=== PATIENT | female | born 1940 | race Caucasian/White ===

== ENCOUNTER 2018-06-27 20:46 | Emergency (ER) | payer MEDICARE, BC ==
[~2018-06-27] VITALS: Ht 157.5 cm; Wt 71.2 kg
[~2018-06-27 20:46] MED LIST: ASPI-482 PO; ESTR1TAB15 PO; METO25TA4 PO; SIMV40TA3 PO
[2018-06-27 21:17] LABS: BASO % 0 % (0-3); EOS # 0.2 x10^3/uL (0.0-0.7); EOS % 2 % (0-3); HEMATOCRIT 39.6 % (36.0-47.0); HEMOGLOBIN 13.3 g/dL (12.0-15.5); LYMPH # 3.5 x10^3/uL (1.0-4.8); LYMPH % 32 % (24-48); MEAN CORPUSCULAR HEMOGLOBIN 30 pg (25-35); MEAN CORPUSCULAR HGB CONC 34 g/dL (31-37); MEAN CORPUSCULAR VOLUME 90 fL (79-100); MONO # 0.8 x10^3/uL (0.0-1.1); MONO % 8 % (0-9); NEUT # 6.5 x10^3uL (1.8-7.7); NEUT % 59 % (31-73); PLATELET COUNT 259 x10^3/uL (140-400); RED BLOOD COUNT 4.39 x10^6/uL (3.50-5.40); RED CELL DISTRIBUTION WIDTH 13.2 % (11.5-14.5); WHITE BLOOD COUNT 11.1 x10^3/uL (4.0-11.0)
--- NOTE | 2018-06-27 21:20 | PHYS DOC ---
Past Medical History Past Medical History: High Cholesterol Past Surgical History: Hysterectomy Additional Past Surgical Histo: CATARACT Alcohol Use: None Drug Use: None Adult General Chief Complaint Chief Complaint: CHEST WALL PAIN HPI HPI 77-year-old female presents to ER via POV for complaints of upper back pain which radiates down her left arm. Patient states pain has been ongoing for the past 5 days. Patient states on Thursday or Thursday last week she shoveled snow and ice off of her patio. Patient reports she has taken ibuprofen 2 today 600 mg each dose with improved pain but reports with pain still ongoing she decided to come to the ER to be evaluated. At this time patient denies any pain. Patient denies having any shortness of air, abdominal pain, nausea or vomiting, swelling, or chest pain. Patient states pain has only been in her upper back between her shoulders. Patient denies any recent falls or injury. Review of Systems Review of Systems Constitutional: Denies fever or chills [] Eyes: Denies change in visual acuity, redness, or eye pain [] HENT: Denies nasal congestion or sore throat [] Respiratory: Denies cough or shortness of breath [] Cardiovascular: No additional information not addressed in HPI [] GI: Denies abdominal pain, nausea, vomiting, bloody stools or diarrhea [] : Denies dysuria or hematuria [] Musculoskeletal: Denies back pain or joint pain [] Integument: Denies rash or skin lesions [] Neurologic: Denies headache, focal weakness or sensory changes [] Endocrine: Denies polyuria or polydipsia [] All other systems were reviewed and found to be within normal limits, except as documented in this note. Allergies Allergies Allergies Coded Allergies Type Severity Reaction Last Updated Verified No Known Drug Allergies 09/13/17 No Physical Exam Physical Exam Constitutional: Well developed, well nourished, no acute distress, non-toxic appearance. [] HENT: Normocephalic, atraumatic, bilateral external ears normal, oropharynx moist, no oral exudates, nose normal. [] Eyes: PERRLA, EOMI, conjunctiva normal, no discharge. [] Neck: Normal range of motion, no tenderness, supple, no stridor. [] Cardiovascular:Heart rate regular rhythm, no murmur [] Lungs & Thorax: Bilateral breath sounds clear to auscultation [] Abdomen: Bowel sounds normal, soft, no tenderness, no masses, no pulsatile masses. [] Skin: Warm, dry, no erythema, no rash. [] Back: No tenderness, no CVA tenderness. [] Extremities: No tenderness, no cyanosis, no clubbing, ROM intact, no edema. [] Neurologic: Alert and oriented X 3, normal motor function, normal sensory function, no focal deficits noted. [] Psychologic: Affect normal, judgement normal, mood normal. [] Current Patient Data Vital Signs Vital Signs Date Time Temp Pulse Resp B/P (MAP) Pulse Ox O2 Delivery O2 Flow Rate FiO2 06/27/18 20:50 97.5 88 19 221/98 (139) 100 Room Air 97.5 Lab Values Laboratory Tests Test 06/27/18 21:00 White Blood Count 11.1 x10^3/uL (4.0-11.0) H Red Blood Count 4.39 x10^6/uL (3.50-5.40) Hemoglobin 13.3 g/dL (12.0-15.5) Hematocrit 39.6 % (36.0-47.0) Mean Corpuscular Volume 90 fL (79-100) Mean Corpuscular Hemoglobin 30 pg (25-35) Mean Corpuscular Hemoglobin Concent 34 g/dL (31-37) Red Cell Distribution Width 13.2 % (11.5-14.5) Platelet Count 259 x10^3/uL (140-400) Neutrophils (%) (Auto) 59 % (31-73) Lymphocytes (%) (Auto) 32 % (24-48) Monocytes (%) (Auto) 8 % (0-9) Eosinophils (%) (Auto) 2 % (0-3) Basophils (%) (Auto) 0 % (0-3) Neutrophils # (Auto) 6.5 x10^3uL (1.8-7.7) Lymphocytes # (Auto) 3.5 x10^3/uL (1.0-4.8) Monocytes # (Auto) 0.8 x10^3/uL (0.0-1.1) Eosinophils # (Auto) 0.2 x10^3/uL (0.0-0.7) Basophils # (Auto) 0.0 x10^3/uL (0.0-0.2) Sodium Level 138 mmol/L (136-145) Potassium Level 4.1 mmol/L (3.5-5.1) Chloride Level 104 mmol/L (98-107) Carbon Dioxide Level 25 mmol/L (21-32) Anion Gap 9 (6-14) Blood Urea Nitrogen 16 mg/dL (7-20) Creatinine 0.9 mg/dL (0.6-1.0) Estimated GFR (Cockcroft-Gault) 60.6 BUN/Creatinine Ratio 18 (6-20) Glucose Level 98 mg/dL (70-99) Calcium Level 9.2 mg/dL (8.5-10.1) Total Bilirubin 0.3 mg/dL (0.2-1.0) Aspartate Amino Transferase (AST) 24 U/L (15-37) Alanine Aminotransferase (ALT) 23 U/L (14-59) Alkaline Phosphatase 70 U/L (46-116) Troponin I Quantitative < 0.017 ng/mL (0.000-0.055) Total Protein 7.6 g/dL (6.4-8.2) Albumin 3.6 g/dL (3.4-5.0) Albumin/Globulin Ratio 0.9 (1.0-1.7) L Laboratory Tests 06/27/18 21:00 Laboratory Tests 06/27/18 21:00 EKG EKG EKG obtained 06/27/18 at 2055 Interpreted by ER physician Sinus rhythm PACs Rate 94 No STEMI Radiology/Procedures Radiology/Procedures PROCEDURE: CHEST PA & LATERAL PA and lateral chest radiographs 06/27/2018 CLINICAL HISTORY: Chest pain. PA and lateral digital radiographs of the chest were obtained. Comparison study is dated 09/13/2017. The cardiac silhouette is normal in size. The thoracic aorta is mildly tortuous. No acute pulmonary infiltrate is seen. No pleural effusion or pneumothorax is seen. The osseous structures are grossly intact. IMPRESSION: No acute abnormality is seen. Electronically signed by: Nate Mcwilliams MD (06/27/2018 9:45 PM) [facility] DICTATED and SIGNED BY: NATE MCWILLIAMS MD DATE: 06/27/182136 Course & Med Decision Making Course & Med Decision Making Pertinent Labs and Imaging studies reviewed. (See chart for details) [] Dragon Disclaimer Dragon Disclaimer This electronic medical record was generated, in whole or in part, using a voice recognition dictation system. Departure Departure Impression: Primary Impression: Back pain Additional Impressions: Musculoskeletal back pain Muscle strain of upper back Disposition: 01 HOME, SELF-CARE Condition: STABLE Referrals: CELIA MOREL MD (PCP) Patient Instructions: Back Pain, Adult, Muscle Strain, Musculoskeletal Pain Additional Instructions: Ice and heat compress to affected area every 3-4 hours for 20-30 minutes- avoid direct ice contact with skin. If symptoms persist follow-up with her primary care physician for reevaluation in 3-5 days. If symptoms worsen or with concerns return to the emergency department for reevaluation. You can take azzt-ftp-asfhwua Tylenol and/or ibuprofen as directed on container as needed for pain. You can try gnsu-ftl-nulswhy sports creams such as Icy hot or BenGay as directed on container as needed for pain. The Lidoderm patch that was applied in the Emergency Department needs to be removed in 12 hours which will be at 10 AM tomorrow. Problem Qualifiers ALEXANDRA MANE APRN Jun 27, 2018 21:20
[2018-06-27 21:24] LABS: CALCIUM 9.2 mg/dL (8.5-10.1); CREATININE 0.9 mg/dL (0.6-1.0); GFR 60.6; POTASSIUM 4.1 mmol/L (3.5-5.1)
[2018-06-27 21:29] LABS: ALBUMIN 3.6 g/dL (3.4-5.0); ALBUMIN/GLOBULIN RATIO 0.9 (1.0-1.7); TOTAL BILIRUBIN 0.3 mg/dL (0.2-1.0); TOTAL PROTEIN 7.6 g/dL (6.4-8.2)
--- NOTE | 2018-06-27 21:50 | RAD ---
PA and lateral chest radiographs 06/27/2018 CLINICAL HISTORY: Chest pain. PA and lateral digital radiographs of the chest were obtained. Comparison study is dated 09/13/2017. The cardiac silhouette is normal in size. The thoracic aorta is mildly tortuous. No acute pulmonary infiltrate is seen. No pleural effusion or pneumothorax is seen. The osseous structures are grossly intact. IMPRESSION: No acute abnormality is seen. Electronically signed by: Nate Jennings MD (06/27/2018 9:45 PM) [facility]
[2018-06-27 22:10] VITALS: BP 158/67
[2018-06-27] MEDS ORDERED: LIDOCAINE (700MG/PATCH) PATCH. TD ONE (22:30)
--- NOTE | 2018-06-28 06:33 | EKG ---
[facility] [address] [place] [address] Test Date: 2018-06-27 Test Time: 20:55:27 Pat Name: NITZA LUNA Department: Room: Gender: F Student Services Representative: : 1940 Requested By: ALEXANDRA MANE Order Number: [id number] Reading MD: Measurements Intervals [place] Rate: 94 P: 37 LA: 160 QRS: 41 QRSD: 90 T: -5 QT: 328 QTc: 415 Interpretive Statements SINUS RHYTHM ATRIAL PREMATURE COMPLEX(ES) QRS(T) CONTOUR ABNORMALITY CONSIDER ANTEROSEPTAL MYOCARDIAL DAMAGE POSSIBLY ABNORMAL ECG RI6.01 No previous ECG available for comparison
== END 2018-06-27 22:35 | disposition home or self-care (01) ==
LOC: ER 20:46
DX: S29.012A Strain of muscle and tendon of back wall of thorax, initial encounter (principal); E78.00 Pure hypercholesterolemia, unspecified; Z90.710 Acquired absence of both cervix and uterus; X58.XXXA Exposure to other specified factors, initial encounter; Y93.89 Activity, other specified; Y92.89 Other specified places as the place of occurrence of the external cause; Y99.8 Other external cause status
CPT/HCPCS: 36415; 71046; 80053; 84484; 85025; 93005; 99284

== ENCOUNTER → 2018-11-29 | Outpatient (CLI) | payer MEDICARE, BC ==
--- NOTE | 2018-11-29 13:29 | RAD ---
MR#: [id number] Date of Study: 11/29/2018 Ordering Physician: GUERA NG, Referring Physician: NIYAH HOOPER Tech: FRAN Anderson, ARRT (R) (N) APPROVED REPORT Test Type: Exercise Stress Nurse/Tech: Shelby Coombs RN Test Indications: Chest pain Cardiac History: No known cardiac Medications: See Electronic Medical Record Medical History: See Electronic Medical Record Resting ECG: ST with PVCs Resting Heart Rate: 103 bpm Resting Blood Pressure: 133/57mmHg Pretest Chest Pain: No chest pain Nurse/Tech Notes S1,S2 and lungs clear to auscultation. Consent: The procedure was explained to the patient in lay terms. Informed consent was witnessed. Adolfo eout was entered into [employer]. History and Stress Test performed by RT Miguel Ángel (R) (N) Stress Symptoms Fatigue POST EXERCISE Reason for Termination: Reached target heart rate Target HR: Yes Max HR: 213 bpm 178% of Maximum Predicted HR: 119 bpm Exercise duration: 5:12 min:sec, 2 Stage Exercise capacity: 7.0METs Max Blood Pressure: 159/65mmHg Blood Pressure response to exercise: Normal blood pressure response during stress. Heart Rate response to exercise: WNL Chest Pain: No. Arrhythmia: Yes. PVCs and PACs ST Change: No. INTERPRETATION Stress EKG Conclusion: Abnormal EKG response with inferior TWI suggestive of ischemia. Imaging Protocol IMAGE PROTOCOL: Rest Tc-99m/stress Tc-99m 1 day Rest: Stress: Viability: Radiopharm.Tc99m [id number] Sestamibi [id number] 33mCi Img Date 11/29/2018 11/29/2018 Inj-Img [id number]. 60min. Rest Admin Site:IV - Right AntecubitalAdministrator:RT Miguel Ángel (Param)(N) Stress Admin Site: IV - Right AntecubitalAdministrator: RT Miguel Ángel (R)(N) STRESS DATA End Diast. Vol.48.0mlLVEDV index BSA28.0ml End Syst. Vol.7.0mlLVESV index BSA4.0ml Myocardial Mass92.0gEject. Oukxriku68.0% Stress Scores Regional WT0.00Summed WT0.00 Regional WM0.00Summed WM0.00 The rest and stress images show normal perfusion, normal contraction and thickening. LV Perf. Quant 17 Seg. SSS0.00 17 Seg. SRS0.00 17 Seg. SDS0.00 Stress Defect Extent (% LAD)0.00Rest Defect Extent (% LAD)0.00Rev. Defect Extent (% LAD)0.00 Stress Defect Extent (% LCX) 0.00Rest Defect Extent (% LCX)0.00Rev. Defect Extent (% LCX)0.00 Stress Defect Extent (% RCA)0.00Rest Defect Extent (% RCA)0.00Rev. Defect Extent (% RCA)0.00 Stress Defect Extent (% ZARIA)0.00Rest Defect Extent (% ZARIA)0.00Rev. Defect Extent (% ZARIA)0.00 Other Information Quality:Good Risk Assessment: Low Risk Conclusion 1. Below average exercise capacity with abnormal EKG response suggestive of inferior ischemia. 2. Normal perfusion at stress/rest. 3. Normal EF at > 60% 4. Low risk study overall Signed by : Guera Ng, Electronically Approved : 11/29/2018 13:29:27
== END | disposition home or self-care (01) ==
LOC: NM 09:05
PROVIDERS: ATTEND Internal Medicine Cardiovascular Disease
DX: R94.31 Abnormal electrocardiogram [ECG] [EKG] (principal); I49.3 Ventricular premature depolarization; I49.1 Atrial premature depolarization; R53.83 Other fatigue; Z79.01 Long term (current) use of anticoagulants
CPT/HCPCS: 78452; 93017; A9500; 96376